=== PATIENT | female | born 1990 | race Caucasian/White ===

== ENCOUNTER 2022-05-24 19:02 | Emergency (ER) | payer OTHER ==
[2022-05-24 19:19] VITALS: BP 117/74; PULSE 101; RESP 18; TEMP 97; BMI 24.3
[2022-05-24] MEDS ORDERED: METOCLOPRAMIDE HCL INJECTION 10 MG/2 ML VIAL IVPUSH ONE (20:58)
[2022-05-24] MEDS ORDERED: SODIUM CHLORIDE 1,000 ML IV STA (20:59)
[2022-05-24] MEDS ORDERED: METOCLOPRAMIDE HCL INJECTION 10 MG/2 ML VIAL ONE (21:24)
[2022-05-24] MEDS ORDERED: diphenhydrAMINE HCL 12.5 MG/5 ML UNIT-DOSE CUPS ONE (21:24)
[2022-05-24] MEDS ORDERED: KETOROLAC TROMETHAMINE 15 MG/ML VIAL IVPUSH ONE (22:18)
[2022-05-24 22:30] LABS: BASO % 0.3 % (0-2.0); EOS % 0.1 % (0-4.5); HEMATOCRIT 39.6 % (32.4-45.2); HEMOGLOBIN 13.6 GM/dL (10.7-15.3); LYMPH % 13.7 % (8-40); MCH 29.3 pg (25.7-33.7); MCHC 34.3 g/dl (32.0-36.0); MEAN CELL VOLUME 85.4 fl (80-96); MEAN PLT VOLUME 7.7 fl (7.5-11.1); MONO % 5.8 % (3.8-10.2); NEUT % 80.1 % (42.8-82.8); PLATELET COUNT 246 10^3/uL (134-434); RBC 4.64 M/mm3 (3.60-5.2); RDW 13.4 % (11.6-15.6); WHITE BLOOD COUNT 6.7 K/mm3 (4.0-10.0)
[2022-05-24] MEDS ORDERED: KETOROLAC TROMETHAMINE 15 MG/ML VIAL ONE (22:35)
[2022-05-24 22:42] LABS: CHLORIDE 102 mmol/L (98-107); SODIUM 138 mmol/L (136-145)
[2022-05-24 22:44] LABS: ANION GAP 9 MMOL/L (8-16); BLOOD UREA NITROGEN 8.8 mg/dL (7-18); CALCIUM 8.7 mg/dL (8.5-10.1); CO2 26 mmol/L (21-32); GLUCOSE,RANDOM 111 mg/dL (74-106)
[2022-05-24 22:47] LABS: CREATININE 0.8 mg/dL (0.55-1.3); SGOT/AST 14 U/L (15-37)
[2022-05-24 22:48] LABS: SGPT/ALT 18 U/L (13-61)
[2022-05-24 22:49] LABS: TOT PROT 7.6 g/dl (6.4-8.2)
[2022-05-24 22:50] LABS: ALK PHOS 47 U/L (45-117); INR 1.12 (0.83-1.09); PROTHROMBIN TIME (PATIENT) 12.9 SEC (9.7-13.0)
[2022-05-24 22:53] LABS: ACTIVATED PTT 30.9 SECONDS (25.2-36.5)
[2022-05-24 22:55] LABS: BILIRUBIN,TOTAL 0.4 mg/dL (0.2-1)
== END 2022-05-25 00:16 | disposition home or self-care (01) ==
LOC: JER 19:02
PROC: 3E033GC Introduction of Other Therapeutic Substance into Peripheral Vein, Percutaneous Approach (ICD-10-PCS; principal; 2022-05-24)
DX: G43.909 Migraine, unspecified, not intractable, without status migrainosus (principal)
CPT/HCPCS: 0241U-QW; 36415; 80053; 84702; 85025; 85610; 85730; 99284-25